=== PATIENT | female | born 1990 | race Hispanic/Latino ===

== ENCOUNTER 2018-09-16 07:27 | Emergency (ER) | payer SELFPAY ==
[~2018-09-16] VITALS: Ht 149.9 cm; Wt 44.5 kg
[~2018-09-16 07:27] MED LIST: PROZAC20 MG PO
== END 2018-09-16 07:53 | disposition left against medical advice (07) ==
LOC: ER 07:27
DX: R10.30 Lower abdominal pain, unspecified (principal)

== ENCOUNTER 2024-05-30 18:32 | Emergency (ER) | payer OTHER ==
[~2024-05-30] VITALS: Ht 149.9 cm; Wt 46.3 kg
[~2024-05-30 18:32] MED LIST changes: +CEPHALEXIN500 MG PO
[2024-05-30 18:49] VITALS: PULSE 65; RESP 16; TEMP 99.1; O2SAT 100
[2024-05-30] MEDS: LIDOCAINE HCL 1% LOCAL INJ 20 ML VIAL INJ ONE (18:55)
[2024-05-30] MEDS ORDERED: CLEOCIN HCL300 MG PO (18:58)
[2024-05-30] MEDS ORDERED: KETOROLAC TROME10 MG PO (18:58)
== END 2024-05-30 19:03 | disposition home or self-care (01) ==
LOC: ER 18:38
DX: K04.7 Periapical abscess without sinus (principal)
CPT/HCPCS: 99283